=== PATIENT | male | born 1960 | race Caucasian/White ===

== ENCOUNTER → 2016-11-11 | Outpatient (CLI) | payer OTHER ==
[~2016-11-11] MED LIST: DEPO METHYLPREDNISOLONE 40 MG/ML SDV ONE; IOPAMIDOL (ISOVUE 370) 100 ML BTL IV ONE; LIDOCAINE 1% 30 ML SDV ONE; NA BICARBONATE 50 MEQ/50 ML VIAL ONE; ROPIVACAINE HCL 150 MG/30 ML INJ ONE
--- NOTE | 2016-11-11 11:49 | DX ---
Right Hip Fluoroscopic-Guided Therapeutic Injection History: M16.11. Right Hip pain. Osteoarthritis. Consent: Witnessed informed consent for right hip fluoroscopic guided injection of Sensorcaine and De po-Medrol was obtained after the risks, benefits, and alternatives of procedure were explained to the patient and all questions were answered. Fluoroscopy time: 1.4 minutes. Dose 24.8 mGy. Procedure: Utilizing fluoroscopic guidance and sterile technique, the hip was prepped in usual shante rile fashion. Lidocaine with bicarbonate was used as local anesthesia. Then a 22-gauge spinal needle was advanced into the lateral femoral neck aspect of the hip joint. 2 mL of Isovue contrast injected into the joint to document positioning. Then 3 mL of Ropivacaine and 40 mg of Depo-Medrol were inject ed into the hip joint. Needle was removed. Manual hemostasis was achieved. Patient tolerated the proc edure well without immediate complications. Discharge instructions were given. Impression: 1. Successful right hip 40 mg Depo-Medrol and 3ml Ropivacaine injection under fluoroscopic guidance. 2. No immediate complications. Crosscutting Measure #226: Current tobacco user: no.
== END ==
LOC: FIMAGING 09:50
PROVIDERS: ATTEND Orthopaedic Surgery
PROC: 3E0U33Z Introduction of Anti-inflammatory into Joints, Percutaneous Approach (ICD-10-PCS; principal; 2016-11-11)
PROC: 3E0U3BZ Introduction of Anesthetic Agent into Joints, Percutaneous Approach (ICD-10-PCS; 2016-11-11)
DX: M16.11 Unilateral primary osteoarthritis, right hip (principal); M25.551 Pain in right hip
CPT/HCPCS: J1020; J2795; Q9967

== ENCOUNTER → 2018-01-01 | Outpatient (CLI) | payer OTHER ==
[~2018-01-01] MED LIST changes: -LIDOCAINE 1% 30 ML SDV ONE; +LIDOCAINE 1% 300 MG/30 ML SDV ONE; -NA BICARBONATE 50 MEQ/50 ML VIAL ONE
== END ==
LOC: FIMAGING 10:13
PROVIDERS: ATTEND Orthopaedic Surgery
PROC: 3E0U33Z Introduction of Anti-inflammatory into Joints, Percutaneous Approach (ICD-10-PCS; principal; 2018-01-01)
PROC: 3E0U3BZ Introduction of Anesthetic Agent into Joints, Percutaneous Approach (ICD-10-PCS; principal; 2018-01-01)
DX: M16.11 Unilateral primary osteoarthritis, right hip (principal)
CPT/HCPCS: J1030; J2795; Q9967

== ENCOUNTER → 2018-05-11 | Outpatient (CLI) | payer OTHER | LOC: BMCIMAGING 16:17 | PROVIDERS: ATTEND Internal Medicine | DX: Z01.810 Encounter for preprocedural cardiovascular examination (principal); I27.20 Pulmonary hypertension, unspecified ==

== ENCOUNTER 2019-02-28 13:52 | Emergency (ER) | payer OTHER ==
--- NOTE | 2019-02-28 14:07 | EDPHY ---
H & P Stated Complaint: NUMBNESS TO L ARM AND LEG, CHEST ACHEY Source: Patient Exam Limitations: No limitations - Personal History Current Tetanus Diphtheria and Acellular Pertussis (TDAP): Yes - Medical/Surgical History Hx Asthma: No Hx Chronic Respiratory Disease: No Hx Diabetes: No Hx Cardiac Disease: No Hx Renal Disease: No Hx Cirrhosis: No Hx Alcoholism: No Hx HIV/AIDS: No Hx Splenectomy or Spleen Trauma: No Other PMH: ACL surgery, prostate CA 2006, HIP REPLACMENT, HIGH CHOL, - Social History Smoking Status: Never smoked Time Seen by Provider: 02/28/19 14:06 HPI/ROS: CHIEF COMPLAINT: Paresthesias left arm and leg HISTORY OF PRESENT ILLNESS: The patient presents the ED with a 2 day history of paresthesias involving his left arm and leg. The patient denies any complaints of weakness, acute headache, neck pain, history of trauma, cervical manipulation, fever, significant chest pain, cough or shortness of breath. The patient has no history of migraine, TIA or stroke. The patient does have a history of having similar left-sided paresthesias in 2014 which prompted her visit to the emergency department during which time the patient had a normal CT and CTA of his head neck. The patient had some recurrent symptoms in July of that year and had an MRI of the brain and cervical spine which were normal. The patient does report that he is having some problems with insomnia secondary to stress. He denies any infectious symptoms. He denies additional acute complaints. REVIEW OF SYSTEMS: A comprehensive 10 point review of systems is otherwise negative aside from elements mentioned in the history of present illness. (Juice Watts) - Physical Exam Exam: General Appearance: Alert, no distress Eyes: Pupils equal and round no pallor or injection ENT, Mouth: Mucous membranes moist Respiratory: There are no retractions, lungs are clear to auscultation Cardiovascular: Regular rate and rhythm Gastrointestinal: Abdomen is soft and nontender, no masses, bowel sounds normal Neurological: A&O, normal motor function, patient reports intact fine touch sensation bilateral upper lower extremities but reports a resting paresthesia., normal cranial nerves, NIH stroke scale 0 Skin: Warm and dry, no rashes Musculoskeletal: Neck is supple nontender Extremities: symmetrical, full range of motion Psychiatric: Patient is oriented X 3, there is no agitation (Juice Watts) Constitutional: Initial Vital Signs Temperature (C) 36.7 C 04/28/19 13:56 Heart Rate 75 02/28/19 13:56 Respiratory Rate 16 02/28/19 13:56 Blood Pressure 145/82 H 02/28/19 13:56 O2 Sat (%) 94 02/28/19 13:56 O2 Delivery Mode Room Air Allergies/Adverse Reactions: No Known Allergies Allergy (Verified 07/31/15 02:39) Home Medications: Medication Instructions Recorded Amoxicillin/Clavulanate Pot 02/28/19 Losartan Potassium 02/28/19 Magnesium Citrate 02/28/19 Melatonin 02/28/19 Naproxen 02/28/19 Rosuvastatin Calcium 02/28/19 Tamsulosin HCl 02/28/19 Valerian 02/28/19 Medical Decision Making - Diagnostics EKG Interpretation: EKG: Complete interpretation has been separately recorded in the [facility] [employer] archive. Summary impression: Sinus rhythm, nonspecific ST T wave changes noted (Juice Watts) Imaging Results: Imaging Impressions Brain MRI 02/28/19 14:13 Impression: 1. Normal MRI of the brain without contrast. No change since prior study. If symptoms worsen, additional imaging may be necessary. Findings discussed with Juice Watts M.D. at 15:58 hour, 02/28/2019. ED Course/Re-evaluation: I reviewed the patient's past medical records including the results of his head CT, CTA, MRI of the brain and MRI of the cervical spine in 2014. Aside from complaints of paresthesias the patient's neurologic examination is normal. I have told the patient that my suspicion for stroke is low as he seems to be having exacerbation of a prior condition which may be my redness in nature. The patient has no acute neck complaints. He has no history of fall or trauma. The patient will undergo an MRI of the brain to evaluate for stroke. If this is negative I do feel the patient can be discharged home. The patient will be turned over to Dr. Guerra at shift change pending the results of his MRI. (Juice Watts) I assumed care of this patient from Dr. Watts at 3:00 p.m.. At 4:00 p.m. I received a report on the MRI from Dr. Goode. I relayed this result to the patient and his . They are reassured and are comfortable returning home and following up with Dr. Cummings. (Georgia Guerra) Differential Diagnosis: Differential diagnosis considered includes migraine variant, peripheral neuropathy, paresthesia, stroke, TIA, [employer] tumor (Juice Watts) - Data Points Laboratory Results: Laboratory Results 02/28/19 14:10 02/28/19 14:10 02/28/19 02/28/19 02/28/19 14:29 14:10 14:10 WBC 7.82 10^3/uL 10^3/uL (3.80-9.50) RBC 5.39 10^6/uL 10^6/uL (4.40-6.38) Hgb 16.1 g/dL g/dL (13.7-17.5) Hct 47.9 % % (40.0-51.0) MCV 88.9 fL fL (81.5-99.8) MCH 29.9 pg pg (27.9-34.1) MCHC 33.6 g/dL g/dL (32.4-36.7) RDW 12.6 % % (11.5-15.2) Plt Count 236 10^3/uL 10^3/uL (150-400) MPV 10.4 fL fL (8.7-11.7) Neut % (Auto) 75.4 % H % (39.3-74.2) Lymph % (Auto) 13.0 % L % (15.0-45.0) Hodgeman % (Auto) 7.9 % % (4.5-13.0) Eos % (Auto) 2.9 % % (0.6-7.6) Baso % (Auto) 0.5 % % (0.3-1.7) Nucleat RBC Rel Count 0.0 % % (0.0-0.2) Absolute Neuts (auto) 5.89 10^3/uL 10^3/uL (1.70-6.50) Absolute Lymphs (auto) 1.02 10^3/uL 10^3/uL (1.00-3.00) Absolute Monos (auto) 0.62 10^3/uL 10^3/uL (0.30-0.80) Absolute Eos (auto) 0.23 10^3/uL 10^3/uL (0.03-0.40) Absolute Basos (auto) 0.04 10^3/uL 10^3/uL (0.02-0.10) Absolute Nucleated RBC 0.00 10^3/uL 10^3/uL (0-0.01) Immature Gran % 0.3 % % (0.0-1.1) Immature Gran # 0.02 10^3/uL 10^3/uL (0.00-0.10) Sodium 137 mEq/L mEq/L (135-145) Potassium 4.8 mEq/L mEq/L (3.5-5.2) Chloride 103 mEq/L mEq/L (97-110) Carbon Dioxide 25 mEq/l mEq/l (22-31) Anion Gap 9 mEq/L mEq/L (6-14) BUN 21 mg/dL mg/dL (7-23) Creatinine 1.0 mg/dL mg/dL (0.7-1.3) Estimated GFR > 60 Glucose 113 mg/dL H mg/dL (70-100) Calcium 9.3 mg/dL mg/dL (8.5-10.4) POC Troponin I 0.00 ng/mL ng/mL (0.00-0.08) Medications Given: Discontinued Medications Lorazepam (Ativan Injection) 1 mg IVP EDNOW ONE Stop: 02/28/19 14:36 Last Admin: 02/28/19 14:45 Dose: 1 mg Point of Care Test Results: Chemistry 02/28/19 14:29 POC Troponin I 0.00 ng/mL ng/mL (0.00-0.08) Departure - Departure Disposition: [facility] IP Clinical Impression: Paresthesia Condition: Good Instructions: Paresthesia (ED) Additional Instructions: 1. Please follow-up with your primary care provider. 2. Return to the ED for markedly worsening neurologic symptoms, severe headache or other concerns. Referrals: Minna Cummings MD [Primary Care Provider] - As per Instructions
--- NOTE | 2019-02-28 14:20 | CPEKG ---
Test Reason : OPEN Blood Pressure : / mmHG Vent. Rate : 076 BPM Atrial Rate : 076 BPM P-R Int : 173 ms QRS Dur : 081 ms QT Int : 372 ms P-R-T Axes : 055 -33 102 degrees QTc Int : 419 ms Sinus rhythm Confirmed by Juice Watts ([id number]) on 02/28/2019 2:19:46 PM Referred By: Juice Watts Confirmed By:Juice Watts
[2019-02-28 14:24] LABS: PLATELET COUNT 236 10^3/uL (150-400)
[2019-02-28] MEDS ORDERED: LORazepam 2 MG/ML INJ IVP ONE (14:35)
[2019-02-28 16:17] VITALS: BP 158/81
== END 2019-02-28 16:24 ==
DX: R20.2 Paresthesia of skin (principal)
CPT/HCPCS: 70551-PN; 84484-ER; 96374; J2060